=== PATIENT | female | born 1980 | race African-American/Black ===

== ENCOUNTER 2021-01-31 12:44 | Day surgery (SDC) | payer BC ==
[~2021-01-31 12:44] MED LIST: Ferumoxytol (ERSD) 510 MG in Sodium Chloride 0.9% 150 ML IVPB SCH
[2021-01-31 13:16] VITALS: BP 141/72; TEMP 98.2
== END 2021-01-31 15:08 | disposition home or self-care (01) ==
LOC: ONC/OP 12:44
PROVIDERS: ATTEND Family Medicine
DX: D50.0 Iron deficiency anemia secondary to blood loss (chronic) (principal); Z88.5 Allergy status to narcotic agent
CPT/HCPCS: 96365; J3490; Q0139

== ENCOUNTER 2022-04-12 08:37 | Day surgery (SDC) | payer BC ==
[2022-04-12] MEDS ORDERED: Ferumoxytol (NON ERSD) 510 MG in Sodium Chloride 0.9% 250 ML 150 ML IVPB SCH (08:45)
[2022-04-12 08:55] VITALS: BP 146/72; TEMP 98
== END 2022-04-12 10:15 | disposition home or self-care (01) ==
LOC: ONC/OP 08:37
PROVIDERS: ATTEND Family Medicine
DX: D50.9 Iron deficiency anemia, unspecified (principal); Z88.5 Allergy status to narcotic agent
CPT/HCPCS: 96365; J7050; Q0138

== ENCOUNTER 2022-12-05 22:35 | Emergency (ER) | payer BC | END 2022-12-05 23:25 | disposition left against medical advice (07) | LOC: ERS 22:35 | DX: Z53.21 Procedure and treatment not carried out due to patient leaving prior to being seen by health care provider (principal) | CPT/HCPCS: 93005 ==

== ENCOUNTER 2024-11-05 09:25 | Outpatient (CLI) | payer BC | END 2024-11-05 10:00 | disposition home or self-care (01) | LOC: MRI 09:25 | PROVIDERS: ATTEND Physician Assistant Medical | DX: K76.9 Liver disease, unspecified (principal); I21.9 Acute myocardial infarction, unspecified; I26.99 Other pulmonary embolism without acute cor pulmonale; D50.9 Iron deficiency anemia, unspecified; N92.0 Excessive and frequent menstruation with regular cycle; D18.03 Hemangioma of intra-abdominal structures | CPT/HCPCS: 36000; 74183 ==